=== PATIENT | female | born 1985 | race Caucasian/White ===

== ENCOUNTER 2017-03-07 03:13 | Emergency (ER) | payer OTHER ==
--- NOTE | 2017-03-07 03:15 | PDOC ---
History of Present Illness - General Chief Complaint: Eye Problem Stated Complaint: LT EYE SWELLING Time Seen by Provider: 03/07/17 03:14 - History of Present Illness Initial Comments: This otherwise healthy 31-year-old woman with ALLERGIES to pollen and cat dander presents with swelling of the left periorbital region and eye itching for the last few hours. Patient states that when she went to sleep, she had mild itching of her left eye which she rubbed for a few minutes. She was awakened several hours after this with marked swelling of the tissues around her left eye. She denies pain/vision changes/purulent discharge/crusting of eyelashes. Patient states that she typically has mild itching of her eyes accompanying her environmental ALLERGIES. She has no history of lip/tongue edema or difficulty swallowing/breathing. There are no symptoms associated with her right eye. No known insect bite anywhere on her face. Past History - Past Medical History Allergies/Adverse Reactions: Allergies Allergy/AdvReac Type Severity Reaction Status Date / Time cat dander Allergy Verified 03/07/17 03:28 No Known Drug Allergies Allergy Verified 03/07/17 03:28 Home Medications: Ambulatory Orders Olopatadine HCl [Patanol] 2 drop OS BID #1 bottle 03/07/17 Review of Systems - Review of Systems Able to Perform ROS?: Yes Comments:: 12 point review of systems is negative except for what is noted in the history of present illness *Physical Exam - Physical Exam Comments: GENERAL: Adult female, alert and oriented 3, in no acute distress HEAD: Normal with no signs of trauma. EYES: PERRLA, EOMI, sclera anicteric, conjunctiva clear. Right eyeconjunctiva/anterior chamber/pupil normal without evidence of inflammation or edema Left eyemarked edema of upper and lower eyelids without erythema or crusting of eyelashes; conjunctiva not inflamed Scleredema of lateral aspect of eye; extraocular movements intact; anterior chamber normal, pupil round and reactive ENT: Ears normal, nares patent, oropharynx clear without exudates. Dry mucous membranes. NECK: Normal range of motion, supple without lymphadenopathy, JVD, or masses. LUNGS: Breath sounds equal, clear to auscultation bilaterally. No wheezes, and no crackles. Fluoroscein contrast introduced into left eye; no evidence of corneal abrasion under blue light Medical Decision Making - Medical Decision Making This 31-year-old woman presents with marked ALLERGIC reaction around her left eye; orbit is otherwise normal without evidence of acute corneal abrasion or conjunctivitis. Although no clear evidence of insect bite is present, this reaction could also be related to insect toxin. There is no evidence of generalized ALLERGIC reaction/airway compromise. Patient will be given Benadryl 25 mg now by mouth. Patient will be advised to continue to apply cool compresses and elevate head as much as possible over the next few days. Antihistamine should be used by mouth as needed for itching. also, Patanol drops 2 drops in left eye twice a day will be prescribed *DC/Admit/Observation/Transfer Diagnosis at time of Disposition: Allergic eye reaction - Discharge Dispostion Disposition: HOME Condition at time of disposition: Stable - Prescriptions Prescriptions: Olopatadine HCl [Patanol] 2 drop OS BID #1 bottle - Referrals Referrals: Carina Donald [Primary Care Provider] - - Patient Instructions Printed Discharge Instructions: DI for Eye Allergic Reaction Additional Instructions: Elevate head/cool compresses to left eye Antihistamine(Claritin or Zyrtec during the day/Benadryl at night) as needed Patanol eyedrops: 2 drops in left eye twice a day for the next 5 days Return or see your doctor if swelling persists or you develop discharge/pain/ vision changes in the eye
[2017-03-07 03:32] VITALS: BP 118/83; PULSE 60; TEMP 97.9; BMI 24.2
[2017-03-07] MEDS ORDERED: FLUORESCEIN NA 1 EA STRIP ONE (03:59)
[2017-03-07] MEDS ORDERED: diphenhydrAMINE HCL 25 MG CAPSULE (FP) PO ONE ×2 (04:05→04:07)
== END 2017-03-07 04:16 | disposition home or self-care (01) ==
LOC: FER 03:13
DX: T78.40XA Allergy, unspecified, initial encounter (principal); X58.XXXA Exposure to other specified factors, initial encounter; Y93.9 Activity, unspecified
CPT/HCPCS: 99281-25